=== PATIENT | male | born 2000 | race African-American/Black ===

== ENCOUNTER 2024-03-01 13:00 | Emergency (ER) | payer MEDICAID, OTHER ==
[~2024-03-01] VITALS: Ht 175.3 cm; Wt 89.0 kg
[2024-03-01 13:04] VITALS: O2SAT 100
[2024-03-01 13:17] VITALS: TEMP 98
[2024-03-01 13:55] LABS: BASOPHILS % 0.5 % (0.0-2.0); EOSINOPHILS % 0.1 % (0.0-5.0); HEMATOCRIT. 49.2 % (42.0-52.0); HEMOGLOBIN. 16.7 g/dL (14.0-18.0); LYMPHOCYTES % 9.3 % (20.0-50.0); MEAN CORPUSCULAR HEMOGLOBIN 30.6 pg (28.0-32.0); MEAN CORPUSCULAR VOLUME 90.3 fL (80.0-94.0); MEAN PLATELET VOLUME 7.8 fl (7.4-10.4); MONOCYTES % 4.9 % (2.0-8.0); NEUTROPHILS % 85.2 % (40.0-76.0); PLATELET 353 x1000/uL (130-400); RED BLOOD CELL COUNT 5.45 mill/uL (4.7-6.1); RED CELL DISTRIBUTION WIDTH 13.4 % (11.6-14.6); WHITE BLOOD COUNT 13.6 x1000/uL (4.5-11.0)
[2024-03-01 14:07] LABS: CHLORIDE 110 mEq/L (98-107); POTASSIUM 3.9 mEq/L (3.5-5.1); SODIUM 143 mEq/L (136-145)
[2024-03-01 14:08] LABS: CALCIUM 9.9 mg/dL (8.7-10.4); CARBON DIOXIDE 25 mEq/L (21-32)
[2024-03-01 14:13] LABS: CREATININE 0.8 mg/dL (0.6-1.3); GLUCOSE 100 mg/dL (70-105)
[2024-03-01 14:14] LABS: TROPONIN I HIGH SENSITIVITY 4 ng/L (3.0-53)
[2024-03-01 14:15] LABS: ALANINE AMINOTRANSFERASE 20 IU/L (10-49); ALBUMIN 5.2 g/dL (3.2-4.8); ASPARTATE AMINOTRANSFERASE 20 IU/L (<34); PROTHROMBIN TIME 11.3 sec (9.6-11.0)
[2024-03-01 14:16] LABS: BILIRUBIN DIRECT 0.4 mg/dL (<=3.0); PROTEIN TOTAL 7.8 g/dL (6.0-8.3)
[2024-03-01 14:48] LABS: UREA NITROGEN BLOOD < 5 mg/dL (9-23)
[2024-03-01] MEDS: ONDANSETRON HCL 4MG/2ML INJ IV STA (14:48)
[2024-03-01 15:54] LABS: CLARITY URINE CLEAR (CLEAR); COLOR URINE YELLOW (YELLOW); GLUCOSE URINE NEGATIVE (NEGATIVE); KETONES URINE 2+ (NEGATIVE); LEUKOCYTE ESTERASE URINE NEGATIVE (NEGATIVE); NITRITE URINE NEGATIVE (NEGATIVE); OCCULT BLOOD URINE NEGATIVE (NEGATIVE); PH URINE 7.5 (4.5-8.0); PROTEIN URINE NEGATIVE (NEGATIVE); SPECIFIC GRAVITY URINE 1.049 (1.005-1.030)
[2024-03-01] MEDS ORDERED: CIPR-263 MT (19:50)
[2024-03-01] MEDS ORDERED: METR375C2 PO (19:50)
[2024-03-01 20:00] VITALS: BP 125/71; PULSE 85; RESP 17
[2024-03-05 13:06] LABS: CHLAMYDIA TRACHOMATIS NAA Positive (Negative); NEISSERIA GONORRHOEAE NAA Negative (Negative)
== END 2024-03-01 20:52 | disposition home or self-care (01) ==
LOC: ER 13:00
DX: K52.89 Other specified noninfective gastroenteritis and colitis (principal)
CPT/HCPCS: 87491; 87591; 80076; 80048; 81003; 83690; 85025; 85610; 84484; 36415; 71045; 74177; 93005; 96374; 99285; Q9967; J2405; Z7610 ×3